=== PATIENT | female | born 1980 | race Caucasian/White ===

== ENCOUNTER 2018-09-07 12:07 | Emergency (ER) | payer SELFPAY ==
--- NOTE | 2018-09-07 12:51 | EDPHY ---
H & P Stated Complaint: pt has iud /abnl vaginal bleeding 12 months l pelvic mass Time Seen by Provider: 09/07/18 12:25 HPI/ROS: CLINICAL IMPRESSION: Chronic menorrhagia, constipation, left lower quadrant abdominal pain ASSESSMENT/PLAN: 38-year-old G0 female presents to [facility] evaluation of chronic intermittent left lower quadrant abdominal pain and menorrhagia over the last several months. Patient arrives with stable vital signs, afebrile, alert, oriented and in no acute distress. She does have reproducible left lower quadrant pain at that no focal peritoneal findings. Labs are reassuring, no leukocytosis, anemia, renal insufficiency, transaminitis, or electrolyte imbalance. Formal pelvic ultrasound read and interpreted by Dr. Avalos as a normal appearing left ovary, a small 2 cm simple cyst on the right ovary as well as a thin avascular septation of the right ovary. No evidence of ovarian torsion, cyst, fibroid or mass. One-view abdominal KUB reveals significant stool burden throughout the colon, most notably in the descending and sigmoid colon. Patient has had 2 prior hemorrhoidectomy secondary to constipation. I suspect this may be the source of her left lower quadrant abdominal pain and I do not suspect an acute surgical process. We discussed [id number] stool softeners, MiraLax and suppositories, encouraged PCP follow-up as well as gynecologic evaluation for her menorrhagia. Warning signs return to ED sooner outlined in person and discharge papers. DIFFERENTIAL DX: Differential diagnosis includes but not limited to dysmenorrhea, , UTI , pyelonephritis, ovarian cyst, ovarian mass, fibroids, uterine leiomyoma, PID, diverticulitis, anemia ED COURSE: 1500: US results discussed with Dr. Avalos. Small right ovarian 2 cm cyst. Then a vascular septation, recommend repeat ultrasound in 8 weeks. Left ovary without abnormality. Patient updated on these results. Labs reviewed. No leukocytosis or electrolyte imbalance. She admits to history of constipation. Will get one view KUB 1534: xray shows constipation. no SBO CHIEF COMPLAINT: Left lower quadrant abdominal pain, pelvic pain, history of menorrhagia HPI: 38-year-old female [facility] of chronic intermittent menorrhagia, dysmenorrhea, and left lower quadrant abdominal pain. Patient reports she has had an IUD in place for 4 years. In the past she has had diagnoses of ovarian cysts and fibroids. Over the last several months she has had heavier periods lasting anywhere from 10-15 days. She has not had a formal ultrasound recently. She is sexually active with a new partner but reports they have both been tested since they have been together and there is no concern for STDs. She denies any abnormal vaginal discharge today. No UTI symptoms or flank pain. She did have a [facility] exam at [facility], negative urine test, and a reportedly normal wet prep although was told she had"a lot of white blood cells ". No reported fevers, nausea, vomiting, diarrhea, change in bowel habits or bloody stool. She denies and has never been . She feels swelling on the left lower abdomen and was unable to tolerate bimanual exam by [facility] provider. She is currently uninsured. PMH: Anxiety, depression Pertinent Past Surgical History: No pertinent surgical history Family History: Sister with an unknown clotting disorder Social History: Nonsmoker, currently unemployed, drinks alcohol socially ROS: All other systems negative Constitutional: No fever, no chills, appetite change. Cardiovascular: No chest pain, no palpitations. Respiratory: No cough, no shortness of breath. Gastrointestinal: no vomiting, diarrhea.] Genitourinary: No hematuria, dysuria, flank pain, +pelvic pain Musculoskeletal: No back pain, joint swelling, joint pain, myalgias. Skin: No rashes, color change. Neurological: No headache, dizziness, weakness. PHYSICAL EXAM: General Appearance: Alert, oriented, appropriate, cooperative, NAD, well hydrated, non-toxic appearing, VSS, no hypoxia. Respiratory: There are no retractions, lungs are clear to auscultation. Cardiac: Regular rate and rhythm, no murmurs or gallops. Gastrointestinal: Abdomen is soft, tender left lower quadrant with palpable tender mass, bowel sounds normal, no masses/hernia, no rigidity, guarding or focal peritoneal findings. Neurological: Alert and oriented x 3, CN 2-12 grossly intact, normal gait no ataxia, DTR's intact, normal sensation and strength Skin: Warm, dry, no rashes, no nodules on palpation. MEDICAL DECISION MAKING: Patient was seen independently by established practice protocols. Secondary supervising physician at time of evaluation was Dr. Blake. Diagnosis: Left lower quadrant abdominal pain, constipation, chronic menorrhagia. New, requires workup Summary: See Assessment and Plan for summary of ED visit Clinical lab tests: ordered / reviewed. Independent visualization of images, tracing, or specimens: Yes. Decision to obtain medical records or history from someone other than the patient: [facility] Review / Summarize previous medical records: Patient [facility], wet prep, and no evidence of UTI. She reportedly had a normal pelvic exam showing appropriate placement of her IUD. Discussed patient with another provider: Dr. Blake Risk of comlications, morbidity, mortality: Presenting problem moderate Diagnostic procedures moderate Management Options moderate Patient Progress: Stable. - Personal History LMP (Females 10-55): IUD In Place Current Tetanus Diphtheria and Acellular Pertussis (TDAP): Yes - Medical/Surgical History Hx Asthma: No Hx Chronic Respiratory Disease: No Hx Diabetes: No Hx Cardiac Disease: No Hx Renal Disease: No Hx Cirrhosis: No Hx Alcoholism: No Hx HIV/AIDS: No Hx Splenectomy or Spleen Trauma: No Other PMH: denies - Social History Smoking Status: Never smoked Constitutional: Initial Vital Signs Temperature (C) 36.5 C 09/07/18 12:15 Heart Rate 58 L 09/07/18 12:15 Respiratory Rate 18 09/07/18 12:15 Blood Pressure 130/88 H 09/07/18 12:15 O2 Sat (%) 98 09/07/18 12:15 O2 Delivery Mode Room Air Allergies/Adverse Reactions: ciprofloxacin [From Cipro] Allergy (Verified 09/07/18 12:14) Home Medications: Medication Instructions Recorded Prozac 10 MG (*) 09/07/18 SUMAtriptan 09/07/18 Xanax 09/07/18 Medical Decision Making - Diagnostics Imaging Results: Imaging Impressions Pelvic/Renal Ultrasound 09/07/18 12:51 Impression: 1. Appropriately-positioned T-shaped intrauterine device. 2. There is a 2.0 cm cyst containing a single thin avascular septation. Follow- up sonographic reevaluation in 8-12 weeks at a different point in a future menstrual cycle is suggested. There is no evidence of torsion. 3. Small amount of fluid in the endocervical canal. Findings were discussed with Mukesh Sherman PA-C at 14:54, on 09/07/2018. A Follow-Up Required test result has been communicated via the [employer] Critical Result system on 09/07/2018 14:54, Message ID [id number]. Abdomen X-Ray 09/07/18 15:10 Impression: Query constipation. - Data Points Laboratory Results: Laboratory Results 09/07/18 12:33 09/07/18 12:33 09/07/18 09/07/18 12:33 12:33 WBC 6.56 10^3/uL 10^3/uL (3.80-9.50) RBC 4.32 10^6/uL 10^6/uL (4.18-5.33) Hgb 12.9 g/dL g/dL (12.6-16.3) Hct 38.4 % % (38.0-47.0) MCV 88.9 fL fL (81.5-99.8) MCH 29.9 pg pg (27.9-34.1) MCHC 33.6 g/dL g/dL (32.4-36.7) RDW 12.1 % % (11.5-15.2) Plt Count 285 10^3/uL 10^3/uL (150-400) MPV 9.4 fL fL (8.7-11.7) Neut % (Auto) 51.8 % % (39.3-74.2) Lymph % (Auto) 39.8 % % (15.0-45.0) Carson % (Auto) 6.7 % % (4.5-13.0) Eos % (Auto) 1.2 % % (0.6-7.6) Baso % (Auto) 0.3 % % (0.3-1.7) Nucleat RBC Rel Count 0.0 % % (0.0-0.2) Absolute Neuts (auto) 3.40 10^3/uL 10^3/uL (1.70-6.50) Absolute Lymphs (auto) 2.61 10^3/uL 10^3/uL (1.00-3.00) Absolute Monos (auto) 0.44 10^3/uL 10^3/uL (0.30-0.80) Absolute Eos (auto) 0.08 10^3/uL 10^3/uL (0.03-0.40) Absolute Basos (auto) 0.02 10^3/uL 10^3/uL (0.02-0.10) Absolute Nucleated RBC 0.00 10^3/uL 10^3/uL (0-0.01) Immature Gran % 0.2 % % (0.0-1.1) Immature Gran # 0.01 10^3/uL 10^3/uL (0.00-0.10) Sodium 137 mEq/L mEq/L (135-145) Potassium 4.0 mEq/L mEq/L (3.3-5.0) Chloride 104 mEq/L mEq/L (97-110) Carbon Dioxide 24 mEq/l mEq/l (22-31) Anion Gap 9 mEq/L mEq/L (6-14) BUN 13 mg/dL mg/dL (7-23) Creatinine 0.4 mg/dL L mg/dL (0.6-1.0) Estimated GFR > 60 Glucose 92 mg/dL mg/dL (70-100) Calcium 9.7 mg/dL mg/dL (8.5-10.4) Medications Given: Discontinued Medications Ketorolac Tromethamine (Toradol) 15 mg IVP EDNOW ONE Stop: 09/07/18 12:53 Last Admin: 09/07/18 13:00 Dose: 15 mg Departure - Departure Disposition: Home, Routine, Self-Care Clinical Impression: Constipation Qualifiers: Constipation type: other constipation type Qualified Code(s): K59.09 - Other constipation Menorrhagia Qualifiers: Menorrahagia type: with regular cycle Qualified Code(s): N92.0 - Excessive and frequent menstruation with regular cycle Condition: Good Instructions: Constipation (ED), Menorrhagia (ED) Additional Instructions: DISCHARGE INSTRUCTIONS FROM YOUR DOCTOR Thank you for visiting our emergency department today. Please keep in mind that discharge from the emergency department does not mean that there is nothing wrong - it simply means that we have not identified an emergency condition that requires further evaluation or treatment in the hospital. You should always plan to follow up with primary care for re-evaluation of your condition in the next 2-3 days. If you have been referred to a specialist, please call as soon as possible (today or tomorrow) to schedule your follow up appointment at the appropriate time. The ultrasound of the pelvis showed a small right ovarian cyst measuring 2 cm. Left ovary was normal, no evidence of ovarian cyst, fibroids or mass. X-rays reveal significant stool burden throughout the colon, most notably in the descending and sigmoid colon. This may be contributing to the fullness your feeling on the left lower quadrant of her abdomen. We recommend taking Dulcolax suppositories and MiraLax for this. Please increase water hydration, fiber in her diet, fruits and vegetables, and regular activity. Please see her primary care doctor this week to recheck. Labs were reassuring today, no elevation in infection fighting count and electrolytes and kidney function were normal. Please consider gynecologic evaluation to discuss her heavy menstrual cycles. Return to the emergency department for worsening abdominal pain, fever , nausea, vomiting, or any other concerns. People present with illnesses and injuries in different ways, and it is always possible that we have missed something. You may always return for re-evaluation if symptoms worsen or if they are not improving or if you develop new/different symptoms. Again, thank you for choosing our emergency department. We hope that you feel better. Referrals: Joyce Del Valle MD [Primary Care Provider] - As per Instructions Danielle Green MD [Medical Doctor] - As per Instructions
[2018-09-07] MEDS ORDERED: KETOROLAC 15 MG/1 ML SDV IVP ONE (12:52)
[2018-09-07 12:58] LABS: PLATELET COUNT 285 10^3/uL (150-400)
[2018-09-07 16:09] VITALS: BP 119/79
== END 2018-09-07 16:09 | disposition home or self-care (01) ==
DX: K59.09 Other constipation (principal); N92.0 Excessive and frequent menstruation with regular cycle; N83.291 Other ovarian cyst, right side; Z97.5 Presence of (intrauterine) contraceptive device
CPT/HCPCS: 96374; J1885